=== PATIENT | female | born 1990 | race Caucasian/White ===

== ENCOUNTER 2021-05-01 20:27 | Observation (INO) | payer SELFPAY ==
[~2021-05-01] VITALS: Ht 160 cm; Wt 73.0 kg
[2021-05-01] MEDS ORDERED: PREN-176 PO (20:59)
[2021-05-01] MEDS ORDERED: ONDANSETRON HCL 4MG/2ML INJ IV ONE (22:00)
[2021-05-01 23:14] LABS: BASOPHILS % 0.6 % (0.0-2.0); EOSINOPHILS % 1.2 % (0.0-5.0); HEMATOCRIT. 34.7 % (36.0-48.0); LYMPHOCYTES % 18.4 % (20.0-50.0); MEAN CORPUSCULAR HEMOGLOBIN 29.9 pg (28.0-32.0); MEAN CORPUSCULAR VOLUME 86.2 fL (81.0-99.0); MEAN PLATELET VOLUME 9.4 fl (7.4-10.4); MONOCYTES % 5.8 % (2.0-8.0); PLATELET 298 x1000/uL (130-400); RED BLOOD CELL COUNT 4.02 mill/uL (4.2-5.4); RED CELL DISTRIBUTION WIDTH 13.6 % (11.6-14.6)
[2021-05-01 23:15] LABS: CLARITY URINE CLEAR (CLEAR); COLOR URINE YELLOW (YELLOW); KETONES URINE NEGATIVE (NEGATIVE); LEUKOCYTE ESTERASE URINE NEGATIVE (NEGATIVE); NITRITE URINE NEGATIVE (NEGATIVE); OCCULT BLOOD URINE NEGATIVE (NEGATIVE); PH URINE 5.5 (4.5-8.0); PROTEIN URINE NEGATIVE (NEGATIVE); SPECIFIC GRAVITY URINE 1.008 (1.005-1.030); UROBILINOGEN URINE 0.2 E.U./dL (0.2-1.0)
[2021-05-01 23:21] LABS: CHLORIDE 115 mEq/L (98-107)
[2021-05-02] MEDS ORDERED: TERBUTALINE SULFATE 1MG/ML VIAL SUBCUT PRN (03:30)
[2021-05-02] MEDS: LACTATED RINGERS 1,000 ML IV SCH ×2 (03:39→05:35)
== END 2021-05-02 05:54 | disposition home or self-care (01) ==
LOC: 8 EST LDRP 20:27
PROVIDERS: ADMIT Obstetrics & Gynecology; ATTEND Obstetrics & Gynecology
DX: O21.2 Late vomiting of pregnancy (principal); O26.892 Other specified pregnancy related conditions, second trimester; R10.30 Lower abdominal pain, unspecified; Z3A.24 24 weeks gestation of pregnancy
CPT/HCPCS: 36415; 59025; 76805; 80053; 81003; 85025; 96360; 96372; G0378; J3105; 96361; 99281; G0379

== ENCOUNTER 2024-05-16 19:39 | Emergency (ER) | payer SELFPAY ==
[~2024-05-16] VITALS: Ht 165.1 cm; Wt 75.0 kg
[~2024-05-16 19:39] MED LIST: PREN-176 PO
[2024-05-16 20:03] VITALS: TEMP 98.2; O2SAT 100
[2024-05-16] MEDS: LORAZEPAM 0.5MG TABLET PO ONE (21:07)
[2024-05-16] MEDS: FAMOTIDINE 20MG TABLET PO ONE (21:07)
[2024-05-16 21:20] VITALS: BP 122/71; PULSE 68; RESP 14; O2SAT 100
[2024-05-16] MEDS ORDERED: FAMO-135 MT (21:53)
== END 2024-05-16 21:20 | disposition home or self-care (01) ==
LOC: ER 19:39
DX: F41.0 Panic disorder [episodic paroxysmal anxiety] (principal)
CPT/HCPCS: 99283